=== PATIENT | female | born 1950 | race Caucasian/White ===

== ENCOUNTER → 2016-09-03 | Outpatient (CLI) | payer OTHER ==
[~2016-09-03] MED LIST: ASCA500 PO; FRC PO; MYCO500T4 PO; OXYC-57 PO; PRD/25 PO; TACR5CAP PO; ULT/50 PO
[2016-09-03 12:33] LABS: ESTIMATED AVERAGE GLUCOSE 117 mg/dl; HA1C FLAG Normal (Normal)
[2016-09-03 13:02] LABS: CHOLESTEROL/HDL RATIO 2.9
== END | disposition home or self-care (01) ==
LOC: C.LAB 10:31
PROVIDERS: ATTEND Surgery
DX: Z48.298 Encounter for aftercare following other organ transplant (principal); Z94.0 Kidney transplant status; Z79.899 Other long term (current) drug therapy

== ENCOUNTER → 2017-06-03 | Outpatient (CLI) | payer OTHER ==
--- NOTE | 2017-06-03 14:25 | MAMMOGRAPHY REPORT ---
BILATERAL DIGITAL SCREENING MAMMOGRAM TOMOSYNTHESIS WITH CAD: 06/03/2017 CLINICAL HISTORY: Routine screening examination. TECHNIQUE: Breast tomosynthesis in addition to standard 2D mammography was performed. Current study was also evaluated with a Computer Aided Detection (CAD) system. COMPARISON: Comparison is made to exams dated: 06/02/2016 mammogram, 04/30/2015 mammogram - [facility], and 03/09/2007. BREAST COMPOSITION: The tissue of both breasts is heterogeneously dense, which may obscure small mas ses. FINDINGS: The parenchymal pattern is similar to prior mammograms. There are benign abimbola like calcifi cations in the anterior right breast. No developing mass, architectural distortion or cluster of alo picious microcalcifications is seen in either breast. IMPRESSION: ACR BI-RADS CATEGORY 2: BENIGN There is no mammographic evidence of malignancy. A 1 year screening mammogram is recommended. The pa tient will receive written notification of the results. Approximately 10% of breast cancers are not detected with mammography. A negative mammographic report should not delay biopsy if a clinically suggestive mass is present. Angelica Bassett M.D. ay/:06/03/2017 12:43:54 Press Operator Apprentice: Brenda LANDIS(Dina)(Yovana), [facility] letter sent: Normal 1/2 BI-RADS Code: ACR BI-RADS Category 2: Benign
== END | disposition home or self-care (01) ==
LOC: C.MAMM 09:22
PROVIDERS: ATTEND Internal Medicine
DX: Z12.31 Encounter for screening mammogram for malignant neoplasm of breast (principal)

== ENCOUNTER 2019-08-23 07:54 | Inpatient (IN) ==
--- NOTE | 2019-07-14 08:44 | PAT Medication Instructions ---
Medication Instructions Date of Service July 14, 2019 Home Medications Medication Instructions Recorded atorvastatin 80 mg tablet 80 mg PO QPM #90 tab 03/16/19 mycophenolate mofetil 250 mg 250 mg PO BID #180 cap 03/16/19 capsule tacrolimus 1 mg capsule 4 mg PO Q12H #360 cap 03/16/19 tramadol 50 mg tablet 50 mg PO Q4H PRN #120 tab 03/16/19 alprazolam 0.25 mg tablet 0.25 mg PO BID PRN #180 tab 03/22/19 estradiol 0.05 mg/24 hr semiweekly 1 patch TOPICAL WEEKLY #8 ea 04/21/19 transdermal patch mycophenolate mofetil 500 mg tablet 500 mg PO BID #60 tab 05/10/19 vfvgydpqfr-njweanxelxjas-aejwtvxx 1 cap PO Q4H PRN #120 cap 06/27/19 50 mg-325 mg-40 mg capsule cyclobenzaprine 10 mg tablet 10 mg PO BID PRN #180 tab 07/11/19 atorvastatin 80 mg tablet 80 mg PO QPM mycophenolate mofetil 250 mg capsule 250 mg PO BID tacrolimus 1 mg capsule 4 mg PO Q12H tramadol 50 mg tablet 50 mg PO Q4H PRN alprazolam 0.25 mg tablet 0.25 mg PO BID PRN estradiol 0.05 mg/24 hr semiweekly transdermal patch 1 patch TOPICAL WEEKLY mycophenolate mofetil 500 mg tablet 500 mg PO BID pswypvslww-usdpvbjtapeyr-sfqgofso 50 mg-325 mg-40 mg capsule 1 cap PO Q4H PRN aspirin 81 mg PO QAM celecoxib [Celebrex] 200 mg PO QPM nystatin-triamcinolone 1 appln TOP BID PRN pantoprazole 40 mg PO DAILY PRN prednisone 2.5 mg PO QPM cyclobenzaprine 10 mg tablet 10 mg PO BID PRN Continue as directed estradiol 0.05 mg/24 hr semiweekly transdermal patch 1 patch TOPICAL WEEKLY *DO NOT PLACE NEAR SURGICAL SITE ASK your surgeon for instructions celecoxib [Celebrex] 200 mg PO QPM STOP taking 24 hours before surgery nystatin-triamcinolone 1 appln TOP BID PRN DO NOT take the morning of surgery iglhetvrry-wcjlutisfqtpq-xpujjhen 50 mg-325 mg-40 mg capsule 1 cap PO Q4H PRN cyclobenzaprine 10 mg tablet 10 mg PO BID PRN Take morning of surgery With a small sip of water, OTHERWISE NOTHING TO EAT OR DRINK AFTER MIDNIGHT: mycophenolate mofetil 250 mg capsule 250 mg PO BID tacrolimus 1 mg capsule 4 mg PO Q12H tramadol 50 mg tablet 50 mg PO Q4H PRN (if needed, may be taken up to four hours before surgery) alprazolam 0.25 mg tablet 0.25 mg PO BID PRN (if needed) mycophenolate mofetil 500 mg tablet 500 mg PO BID aspirin 81 mg PO QAM pantoprazole 40 mg PO DAILY PRN (if needed) Take evening before surgery atorvastatin 80 mg tablet 80 mg PO QPM mycophenolate mofetil 250 mg capsule 250 mg PO BID tacrolimus 1 mg capsule 4 mg PO Q12H tramadol 50 mg tablet 50 mg PO Q4H PRN (if needed) alprazolam 0.25 mg tablet 0.25 mg PO BID PRN (if needed) mycophenolate mofetil 500 mg tablet 500 mg PO BID olmjarweue-hkiajkiymvjyr-olyyratb 50 mg-325 mg-40 mg capsule 1 cap PO Q4H PRN (if needed) celecoxib [Celebrex] 200 mg PO QPM pantoprazole 40 mg PO DAILY PRN (if needed) prednisone 2.5 mg PO QPM cyclobenzaprine 10 mg tablet 10 mg PO BID PRN (if needed) Other Notes If you have any questions please call us at [phone] or [phone] or [phone] or [phone]
--- NOTE | 2019-07-14 11:37 | Anesthesiology Consultation ---
Date of Service July 14, 2019 Assessment & Plan (1) Encounter for pre-operative examination: Note sent to PCP re: HTN. PCP aware of HTN, "should be OK, we'll follow up." Chart Review Chart Review: Acceptable Risk for Surgery and Patient seen in Pre Admission Testing Teaching & Discussion Instructed NPO after midnight before surgery, except medications with 15 cc of water. Medication instructions provided according to the PAT guidelines. History Surgery Operation Date: 08/23/19 08:50 Proposed Procedures p Right Total Knee Arthroplasty - Jaime Desai MD Height/Weight Height: 5 ft 1 in Weight: 73.7 kg Allergies Allergy/AdvReac Type Severity Reaction Status Date / Time nitrofurantoin AdvReac Unknown SEVERE Verified 07/05/19 09:07 HEADACHE Medications Home Medications Medication Instructions Recorded Confirmed Last Taken atorvastatin 80 mg tablet 80 mg PO QPM #90 tab 03/16/19 07/05/19 Unknown mycophenolate mofetil 250 mg 250 mg PO BID #180 cap 03/16/19 07/05/19 Unknown capsule tacrolimus 1 mg capsule 4 mg PO Q12H #360 cap 03/16/19 07/05/19 Unknown tramadol 50 mg tablet 50 mg PO Q4H PRN #120 tab 03/16/19 07/05/19 Unknown alprazolam 0.25 mg tablet 0.25 mg PO BID PRN #180 tab 03/22/19 07/05/19 Unknown estradiol 0.05 mg/24 hr semiweekly 1 patch TOPICAL WEEKLY #8 ea 04/21/19 07/05/19 Unknown transdermal patch mycophenolate mofetil 500 mg tablet 500 mg PO BID #60 tab 05/10/19 07/05/19 Unknown guxhbsovwb-mfcpazwzmelsh-sndebpkb 1 cap PO Q4H PRN #120 cap 06/27/19 07/05/19 Unknown 50 mg-325 mg-40 mg capsule aspirin 81 mg PO QAM 07/05/19 07/05/19 Unknown celecoxib [Celebrex] 200 mg PO QPM 07/05/19 07/05/19 Unknown nystatin-triamcinolone 1 appln TOP BID PRN 07/05/19 07/05/19 Unknown pantoprazole 40 mg PO DAILY PRN 07/05/19 07/05/19 Unknown prednisone 2.5 mg PO QPM 07/05/19 07/05/19 Unknown cyclobenzaprine 10 mg tablet 10 mg PO BID PRN #180 tab 07/11/19 Unknown Past Medical History Medical History (Updated 07/19/19 @ 10:33 by Lawrence Prado) Cardiac murmur I/ on exam at [facility]. Echo 2018 showed severe mitral annular calcification. 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) Osteoarthritis Osteoporosis Exercise / Class Metabolic Activity III < 4 Walking/Shop/Light housework (Mild +SOB with 1 FOS due to knee pain, currently limited by knee pain; denies CP) Past Surgical History Surgical History Arteriovenous fistula removed History of bladder surgery prolapsed bladder repair History of colonoscopy History of D&C History of surgery PLACEMENT OF PERITONEAL DIALYSIS CATHETER History of surgery H/O AVF CREATION LUE FOR HEMODIALYSIS History of total abdominal hysterectomy and bilateral salpingo-oophorectomy Nausea and vomiting after administration of anesthetic agent Transplant of kidney (Chronic 12/11/11) 23 YEARS AGO - FOLLOWS W/ DR. NIX Past Anesthesia History No Hx of Anesthesia Complications (other than SEVERE PONV) and No Family Hx of Anesthesia Complications History of PONV History of PONV and Hx of Motion Sickness Social History Smoking Status: Never smoker Do You Dip or Chew Tobacco: No Hx Alcohol Use: Yes Alcohol type: wine alcohol intake frequency: holidays/special occasions only Hx Substance Use: No substance use type: does not use Review of Systems Pt denies any recent chest pain, shortness of breath, palpitations, cough, fever or URI. Physical Exam Vital Signs BP: 164/107 (repeat 10 mins later 158/96 -- pt states usually at home is WNL, this is high for her. To see PCP prior to surgery) P: 88bpm SPO2: 95% RA T: 98.0 F R: 18 ENMT Mouth: + dental bridge (upper R); no chipped teeth and no loose teeth Thyromental Distance: > or= 3.5 Finger Breadths (4) Mallampati Class: II Neck normal visual inspection; neck extension not limited Respiratory normal respiratory effort Auscultation: lungs clear to auscultation bilaterally Cardiovascular Rate/Rhythm: regular rate and regular rhythm Heart Sounds: + murmur (I/ RSB) Vessels: no carotid bruit Extremities: no edema Testing Laboratory Results 07/14/19 11:56 07/14/19 11:56 PT 9.9 Seconds (9.0-12.0) 07/14/19 11:56 INR 1.0 (0.9-1.1) 07/14/19 11:56 APTT 24.6 Seconds (21.0-31.0) 07/14/19 11:56 Blood Type O Positive 07/14/19 11:56 Antibody Screen NEGATIVE 07/14/19 11:56 Electrocardiogram Date: 07/14/19 Findings: + NSR @ (78) Chest X-Ray Date: 07/14/19 Findings: + NAD Echocardiogram Date: 05/25/18 EF: > 70% LV size, wall thickness and systolic function are normal. Severe concentric LVH. Grade I diastolic dysfunction. Moderate to severe mitral annular calcification.
--- NOTE | 2019-07-14 12:14 | XRay Report ---
XR chest Pre-admission PA/Lat CLINICAL HISTORY: pat preoperative COMPARISON STUDY: 12/11/2011 FINDINGS: The bones soft tissues and hemidiaphragms are normal. The cardiomediastinal silhouette is n ormal. The lungs are clear. The pulmonary vasculature is normal. IMPRESSION: Negative chest. The above report was generated using voice recognition software. It may contain grammatical, syntax or spelling errors. Electronically signed by: Job Bruner M.D. 07/14/2019 12:13 PM
[2019-07-14 13:53] LABS: Basophils # (auto) 0.01 K/uL (0-0.2); Basophils % (auto) 0.2 %; Eosinophils # (auto) 0.15 K/uL (0-0.5); Eosinophils % (auto) 2.9 %; Hematocrit (blood only) 39.9 % (37-47); Hemoglobin 13.1 g/dL (12.0-16.0); Lymphocytes % (auto) 24.8 %; Mean Corpuscular Hemoglobin 29.4 pg (25-34); Mean Corpuscular Hgb Conc 32.8 g/dL (32-36); Mean Corpuscular Volume 89.7 fL (80-100); Mean Platelet Volume 9.5 fL (7.4-10.4); Monocytes # (auto) 0.44 K/uL (0.11-0.59); Monocytes % (auto) 8.4 %; Neutrophils # (auto) 3.35 K/uL (1.4-6.5); Neutrophils % (auto) 63.7 %; Platelet Count 298 K/uL (130-400); RDW Coefficient of Variation 13.5 % (11.5-14.5); RDW Standard Deviation 44.3 fL (36.4-46.3); Red Blood Count 4.45 M/uL (4.2-5.4); White Blood Count 5.25 K/uL (4.8-10.8)
[2019-07-14 14:01] LABS: BUN Creatinine Ratio 18.3 (10-20); Creatinine Clr Calc Pharmacy 78.8 ml/min; Est GFR (African American) 106.5; Est GFR (Non-African American) 91.9; Potassium 3.9 mmol/L (3.5-5.1)
[2019-07-14 14:06] LABS: Partial Thromboplastin Ratio 0.9; Partial Thromboplastin Time 24.6 Seconds (21.0-31.0); Prothrombin Time 9.9 Seconds (9.0-12.0)
--- NOTE | 2019-08-20 12:23 | History and Physical Report ---
DATE OF ADMISSION: 08/23/2019 CHIEF COMPLAINT: Bilateral knee pain and discomfort, right side greater than left. HISTORY OF PRESENT ILLNESS: The patient is a 69-year-old female who is referred by my partner Dr. Connelly for surgical treatment of her knees. She has got a fairly long history of bilateral knee pain and discomfort that has gradually gotten worse over the past several years and more specifically the past year. She has been through extensive conservative treatment. She has had injections in the knee, which most recently helped for about a month. This has become less successful over time. She describes global pain. The more she walks, the more it hurts. She has difficulty going up and down steps. The right knee bothers her more than left. She would like to have her right knee fixed. Of note, the patient does have a history of kidney transplant 23 years ago with a functioning kidney with a creatinine is 0.61. PAST MEDICAL HISTORY: 1. Hypertension. 2. Elevated cholesterol. 3. Sleep apnea. 4. Gastroesophageal reflux disease. 5. Mild obesity, BMI of 31. 6. Kidney transplant in 1995, followed by Dr. Vicente. PREVIOUS SURGERIES: Include: 1. Hysterectomy in 2012. 2. Kidney transplant in 1995. 3. Vaginal prolapse surgery. ALLERGIES: MACRODANTIN. CURRENT MEDICINES: Include: 1. Prednisone 2.5 mg once a day. 2. CellCept 250 mg twice a day. 3. CellCept 500 mg twice daily. 4. Prograf 4 mg twice a day. 5. Celebrex 200 mg a day. 6. Xanax 0.25 mg twice a day p.r.n. 7. Tylenol. 8. Caffeine. 9. Tramadol. SOCIAL HISTORY: A 69-year-old female. She does not smoke. No significant alcohol intake. FAMILY HISTORY: Noncontributory. REVIEW OF HISTORY: Negative for diabetes, neurologic problem, vascular problems or bleeding disorders. Denies any chest pain or shortness of breath. No history of DVT or PE. She does have a kidney transplant, but it is functioning well. PHYSICAL EXAMINATION: GENERAL: Reveals a healthy pleasant elderly female. Looks to be in pretty good health. HEENT: Benign. NECK: Supple, no lymphadenopathy. LUNGS: Clear to auscultation. HEART: Has regular rate and rhythm. ABDOMEN: Soft, nontender, nondistended. EXTREMITIES: Grossly neurovascularly intact except as follows: Examination of both knees reveals patient walks with a slightly antalgic gait. Examination of the right knee reveals a varus alignment. She is tender over the medial joint line. She has got some bony hypertrophy medially. Range of motion about 10 degrees short of full extension to about 110-115 degrees of flexion. There is no clinical instability. No pain with hip motion. Examination of left knee reveals varus alignment. She is tender over the medial joint line. Range of motion 5-120. No instability. X-RAYS: X-rays of both knees reveal advanced bilateral knee DJD, the right side just a little bit worse than the left. She has got complete loss of the medial joint space in both knees with osteophytes of the medial femoral condyle and medial tibial plateau and subchondral sclerosis. ASSESSMENT: A 69-year-old white female with advanced bilateral knee degenerative joint disease. The right side is a worse than the left and he has failed conservative treatment. She elected to proceed with right knee replacement. PLAN: We will take her to the operating room and do right total knee replacement. The risks and benefits of this procedure were explained to the patient including but not limited to DVT, PE, , infection, neurological injury, vascular injury, bleeding problem, pain, limited range of motion, stiffness, failure to relieve her symptoms, incomplete relief of symptoms, need for further surgery in the future, fracture, leg length inequality, nerve palsy, persistent pain, etc. The patient understands and desires to proceed. Informed consent was obtained. Her prednisone dose is pretty low, so I do not think we need stress doses. We will likely put some vancomycin in the cement. We will limit her NSAID use due to her single kidney. We will use aspirin for DVT prophylaxis. She is hoping to be discharged to home likely with home health.
[~2019-08-23 07:54] MED LIST changes: +ACETAMINOPHEN 500 MG TAB PO SCH; -ASCA500 PO; +BUPIVACAINE 0.5 % 5 MG/1 ML PF 10ML VIAL ONE; +BUPIVACAINE LIPOSOME/PF 266 MG, BUPIVACAINE/EPINEPHRINE 50 ML, SODIUM CHLORIDE 0.9% 30 ... INFIL SCH; +CEFAZOLIN 2000MG 2,000 MG/15 ML SYR IV SCH; +FAMOTIDINE 20 MG TAB PO SCH; -FRC PO; +GABAPENTIN 300 MG CAP PO SCH; +LR 15ML/HR IV SCH; +LR 500ML BOLUS, THEN 15ML/HR IV SCH; +METOCLOPRAMIDE HCL 10 MG TABLET PO SCH; -MYCO500T4 PO; -OXYC-57 PO; -PRD/25 PO; +ROPIVACAINE 0.5% 5 MG/ML 30 ML VIAL ONE; +SCOPOLAMINE 1.5 MG TDSY TD SCH; +SODIUM CHLORIDE 0.9% 1,000 ML IV SCH; -TACR5CAP PO; +TRANEXAMIC ACID 1,000 MG **IV Intra-op IV SCH; -ULT/50 PO
--- NOTE | 2019-08-23 08:40 | History & Physical Bridge Note ---
Date of Service August 23, 2019 History & Physical Bridge Note I have examined the patient, reviewed the History & Physical and in the interval since the performance of the History & Physical I have noted the following changes of clinical significance: no changes noted
[2019-08-23] MEDS ORDERED: TRANEXAMIC ACID / 0.7% NACL 1000MG/100ML BAG IV ONE (08:57)
[2019-08-23] MEDS ORDERED: MIDAZOLAM HCL 1 MG/ML 2ML VIAL ONE (09:29)
[2019-08-23] MEDS ORDERED: ONDANSETRON INJ 2 MG/ML 2 ML VIAL IV PRN (10:24)
[2019-08-23] MEDS ORDERED: ePHEDrine sulfate 50 MG/ML AMP IV PRN (10:24)
[2019-08-23] MEDS ORDERED: HYDROmorphone INJ 1 MG/ML SYRINGE IV PRN (10:24)
[2019-08-23] MEDS ORDERED: ATROPINE SULFATE 0.1 MG/ML 10ML SYR IV PRN (10:24)
[2019-08-23] MEDS ORDERED: BUPIVACAINE/EPINEPHRINE 0.25% 1:200,000 30 ML VIAL ONE (10:41)
[2019-08-23] MEDS ORDERED: SODIUM CHLORIDE 0.9% PF 50 ML VIAL ONE (10:41)
[2019-08-23] MEDS ORDERED: BACITRACIN INJ 50,000 UNIT VIAL ONE (10:42)
[2019-08-23] MEDS ORDERED: BUPIVACAINE LIPOSOME 1.3% 266 MG/20 ML VIAL ONE (10:42)
[2019-08-23] MEDS ORDERED: PROPOFOL IV EMULSION 10 MG/ML 20 ML VIAL IV ONE (11:05)
[2019-08-23] MEDS ORDERED: HYDROCORTISONE SOD SUCCINATE 100 MG/2 ML VIAL ONE (11:06)
[2019-08-23] MEDS ORDERED: VANCOMYCIN HCL 1000MG/20ML VIAL ONE (11:07)
--- NOTE | 2019-08-23 12:35 | Post Operative Brief Note ---
PG Immediate Post Op with CF Date of Surgery August 23, 2019 Pre & Post Diagnosis Operation Date: 08/23/19 10:40 Pre-Op Diagnosis: Right Knee Degenerative Joint Disease Post-Op Diagnosis: Right Knee Degenerative Joint Disease I identified the patient and participated in the time-out.: Yes Procedure Operation Date: 08/23/19 10:40 Actual Procedures p Right Total Knee Arthroplasty(Right) - Jaime Desai MD Surgeon Jaime Desai MD Lockstitch Lining Setter Fili, PAC Estimated Blood Loss 50 Findings Consistent with Post-Op Diagnosis Fluids 300 cc Specimens Specimen Description: Permanent Specimen: A.) Right Knee Bone and Tissue Drains Kohler Catheter (16 irish 10ml balloon, placed by Lluvia Penn PA-C, without difficulty; kohler demonstrates clear yellow urine. Output measured and recorded by anesthesia.) Anesthesia Type Spinal MAC Complications none Disposition Accompanied Patient To Recovery: No Disposition: Recovery Room
--- NOTE | 2019-08-23 12:47 | Operative Report ---
Post Operative Report Pre & Post Diagnosis Operation Date: 08/23/19 10:40 Pre-Op Diagnosis: Right Knee Degenerative Joint Disease Post-Op Diagnosis: Right Knee Degenerative Joint Disease I identified the patient and participated in the time-out.: Yes Procedure Operation Date: 08/23/19 10:40 Actual Procedures p Right Total Knee Arthroplasty(Right) - Jaime Desai MD Surgeon Jaime Desai MD Rock Wool Applicator Fili, PAC Estimated Blood Loss 50 Findings Consistent with Post-Op Diagnosis Operative findings revealed advanced right knee grade 4 fusd-my-adhb disease in all 3 compartments with a fixed varus deformity to her knee. She had osteophytes in all 3 compartments. She had a moderate-sized joint effusion. She had a flexion contracture of 15 degrees. She had diffuse osteopenia. Fluids 300 cc Specimens Right knee sent for pathology. Drains None. Anesthesia Type Spinal MAC Complications none Disposition Accompanied Patient To Recovery: No Disposition: Recovery Room Indications Patient is a 68-year-old female who is had a several year history of bilateral knee pain discomfort right side greater than left. She been through extensive conservative treatment which became less successful over time. X-rays show advanced bilateral knee DJD. She elected proceed with right total knee arthroplasty. Description of Procedure Operative implants consist of: 1. Biomet Vanguard size 65 right posterior stabilized femoral component. 2. Biomet size 67 tibial tray. 3. 10 mm posterior stabilized polyethylene insert. 4. 28 x 8 all poly-patella. Patient was taken to the operating room identified and placed on the operating room table in supine position protectors were properly padded. IV antibiotics were tried by anesthesia team. A spinal anesthetic and abductor canal block had provided in the holding area. Garcia catheter was placed in sterile fashion. Right thigh turn was then placed in the right lower extremities and prepped and draped in usual sterile fashion. The right leg was elevated and exsanguinated with use of an Esmarch and the tourniquet was placed at 300 mmHg. An anterior approach of the right knee was then performed the longitudinal incision centered over the patella. Sharp dissection was carried out through subcutaneous tissue down to level the extensor mechanism. A medial parapatellar arthrotomy incision was made. Some subperiosteal dissection was carried out medially. The fat pad was resected from each patella tendon. The patella femoral ligament was released and the patella was subluxated laterally and the knee was flexed. The osteophytes were taken off the distal femur. The ACL and PCL were then released from distal femur and the tibia was subluxated anteriorly. The external tibial alignment jig was then placed in the interface the tibia and adjusted 14 mm medially. The proximal tibial cut was made to remove about a millimeter bone from most efficient aspect medial tibial plateau. Some osteophytes were taken off medial and posterior medially. The tibia was sized to a size 67. Attention drawn the femur. The distal femur was entered with a sharp drop with intramedullary canal was suction. A right 5 degree valgus cutting guide was placed. Distal femoral c utting block was pinned in place. The distal femoral cut was made to take an additional 3 mm of bone off the distal femur. The femur was then sized to a size 65. We did downsize a slightly. The AP cutting block was pinned parallel to the epicondylar axis which was 3 degrees of external rotation with anterior cut, anterior chamfer, posterior cut, posterior chamfer cuts were made. Box cutting guide was placed in a just slight lateral box cut was made. The knee was flexed. The remnants of the medial and lateral menisci were excised. The osteophytes were taken off the posterior aspect of the femur. Trial femoral component was placed. The tibial tray was then pinned in maximum external rotation and the drill and stem punch were used to create the defect in the proximal tibia for the tibial tray. The knee was then trialed and the 10 mm insert fit most appropriately. Attention drawn to to the patella. The patella was cleaned of all soft tissues. Patella thickness measured 24 mm in thickness was cut down to 14. Would did leave well fixed due to her osteopenia. The patella was sized to a size 28. The locals were drilled for the 28 patella. The lateral osteophyte was removed. Patella button was placed in and the knee was taken through range of motion and the patella tracked nicely with no thumbs test. Attention then drawn to placing the permanent components. No follow-up trial components removed. Bone plug was placed in the distal femur limit blood loss. A double batch of Palacos G cement was mixed. Biomet Vanguard size 65 right posterior by femoral component, a Biomet size 67 tibial tray, the 10 mm posterior box polyethylene insert, and a 28 x 8 all poly-patella were then cemented into place. Knee was brought out into full extension until cement hardened. Final cement check was then performed. The pericapsular tissues were injected with total 100 cc of combination of 20 cc of Exparel, 30 cc normal saline, 50 cc of quarter percent Marcaine with epinephrine. Patient did receive a gram of tranexamic acid before the surgery started. The tourniquet was let down for a total tourniquet time of 54 minutes. Hemostasis reduced electrocautery. Once again irrigated and attention then drawn toward closing. The extensor mechanism then closed with combination 1 PDS suture #1 Vicryl suture in euyutx-kj-aabhj fashion to the extensor mechanism was checked and found to be intact with subcutaneous tissue then closed with 2 Dexon suture in a buried interrupted fashion skin was closed skin ady. Leg was then cleaned and dried and sterile dressing composed of Xeroform, 4 x 4's, sterile cast padding, Jerry bandage were applied. Patient transferred to the recovery room in stable condition. Patient tolerated procedure well no complications. I attest to the content of the Intraoperative Record and any orders documented therein. Any exceptions are noted below.
--- NOTE | 2019-08-23 13:04 | XRay Report ---
XR knee RT 1 or 2V routine CLINICAL HISTORY: Surgical Post Op COMPARISON: None. DISCUSSION: Anatomic alignment post total right knee arthroplasty. Good contact between prosthetic an d underlying bone. There is no evidence for soft tissue swelling. IMPRESSION: Anatomic alignment post total right knee arthroplasty. ACT 112: Negative or not required by law. The above report was generated using voice recognition software. It may contain grammatical, syntax or spelling errors. Electronically signed by: Job Bruner M.D. 08/23/2019 1:03 PM
--- NOTE | 2019-08-23 14:03 | Anesthesiology Progress Note ---
Date of Service August 23, 2019 Anesthesia Post Procedure Vital Signs Vital Signs: Temp Pulse Pulse Resp BP Pulse Ox 08/23/19 13:40 84 23 151/85 H 92 08/23/19 13:30 36.6 C 89 20 153/89 H 95 08/23/19 13:20 87 19 151/91 H 95 08/23/19 13:10 84 20 159/80 H 95 08/23/19 13:00 81 13 166/86 H 96 08/23/19 12:50 84 15 173/84 H 96 08/23/19 12:40 36.6 C 88 16 166/86 H 99 08/23/19 08:28 36.8 C 81 18 165/104 H 97 Pain Intensity Bilateral Knee: Pain Intensity: 2 Head: Pain Intensity: 6 Transfer of Care Handoff Completed per policy Notes Mental Status: alert / awake / arousable Patient Amnestic to Procedure: Yes Nausea / Vomiting: adequately controlled Pain: adequately controlled Airway Patency, RR, SpO2: stable & adequate BP & HR: stable & adequate Hydration State: stable & adequate Neuraxial Anesthesia: was administered and sensory block is resolving Anesthetic Complications: no major complications apparent
[2019-08-23] MEDS ORDERED: BUTALBITAL/ACETAMIN/CAFFEINE TAB PO PRN ×2 (14:13→15:33)
[2019-08-23] MEDS ORDERED: NALOXONE HCL 0.4 MG/1 ML VIAL/CARP IV PRN (14:13)
[2019-08-23] MEDS ORDERED: ALPRAZolam 0.25 MG TABLET PO PRN (14:13)
[2019-08-23] MEDS ORDERED: MAGNESIUM HYDROXIDE SUSP 30 ML UDC PO PRN (14:13)
[2019-08-23] MEDS ORDERED: ALUMINUM/MAGNESIUM SUSP 30 ML UDC PO PRN (14:13)
[2019-08-23] MEDS ORDERED: ESTRADIOL SCH (14:13)
[2019-08-23] MEDS ORDERED: bisacodyL 10 MG SUPP PR PRN (14:13)
[2019-08-23] MEDS ORDERED: PANTOprazole 40 MG TAB PO PRN (14:13)
[2019-08-23] MEDS ORDERED: NYSTATIN/TRIAMCIN CR 15 GM TUBE EXT PRN (14:13)
[2019-08-23] MEDS ORDERED: METOCLOPRAMIDE HCL INJ 5 MG/ML 2 ML VIAL IV PRN (14:13)
[2019-08-23] MEDS ORDERED: CYCLOBENZAPRINE HCL 10 MG TAB PO PRN (14:13)
[2019-08-23] MEDS: SODIUM CHLORIDE 0.9% 1000ML 1,000 ML IV SCH ×2 (14:41→23:30)
[2019-08-23] MEDS: ACETAMINOPHEN 500 MG TAB PO SCH ×2 (15:34→21:54)
[2019-08-23] MEDS: CHECK SCOPOLAMINE PATCH PLACEMENT SCH ×2 (15:35→23:27)
[2019-08-23] MEDS: ASCORBIC ACID 500 MG TAB PO SCH (17:44)
[2019-08-23] MEDS: FERROUS GLUCONATE 324 MG TAB PO SCH (17:45)
[2019-08-23] MEDS: CEFAZOLIN 1000MG 1,000 MG/7.5 ML SYR IV SCH (18:07)
[2019-08-23] MEDS: KETOROLAC TROMETHAMINE 15 MG/ML VIAL IV SCH ×2 (18:07→23:26)
[2019-08-23] MEDS ORDERED: TRANEXAMIC ACID / 0.7% NACL 1,000 MG/100 ML BAG IV SCH (18:38)
[2019-08-23] MEDS: ASPIRIN 81 MG ECTAB PO SCH (20:44)
[2019-08-23] MEDS: TACROLIMUS 1 MG CAP PO SCH (20:44)
[2019-08-23] MEDS: MYCOPHENOLATE MOFETIL 250 MG CAP PO SCH ×2 (20:44→20:46)
[2019-08-23] MEDS: predniSONE 2.5 MG TAB PO SCH (20:45)
[2019-08-23] MEDS: ATORVASTATIN 40 MG TAB PO SCH (20:45)
[2019-08-23] MEDS: DOCUSATE SODIUM 100 MG CAP PO SCH (20:45)
[2019-08-23] MEDS: SENNA 8.6 MG TAB PO SCH (20:46)
[2019-08-23] MEDS: OXYCODONE HCL IR 5 MG TAB (IMMEDIATE RELEASE) PO PRN (20:49)
[2019-08-23] MEDS: TAPENTADOL HCL ER 50 MG TABCR PO SCH (20:49)
[2019-08-23] MEDS: HYDROmorphone INJ 0.5 MG/0.5 ML SYR IV PRN (23:26)
[2019-08-24] MEDS: CEFAZOLIN 1000MG 1,000 MG/7.5 ML SYR IV SCH (02:08)
[2019-08-24] MEDS: OXYCODONE HCL IR 5 MG TAB (IMMEDIATE RELEASE) PO PRN ×4 (04:20→23:31)
[2019-08-24] MEDS: ACETAMINOPHEN 500 MG TAB PO SCH ×3 (05:37→21:01)
[2019-08-24] MEDS: KETOROLAC TROMETHAMINE 15 MG/ML VIAL IV SCH ×4 (05:37→23:31)
[2019-08-24 05:47] LABS: Hematocrit (blood only) 33.3 % (37-47); Hemoglobin 10.7 g/dL (12.0-16.0); Mean Corpuscular Hemoglobin 29.2 pg (25-34); Mean Corpuscular Hgb Conc 32.1 g/dL (32-36); Mean Corpuscular Volume 90.7 fL (80-100); Mean Platelet Volume 8.6 fL (7.4-10.4); Platelet Count 241 K/uL (130-400); RDW Coefficient of Variation 13.3 % (11.5-14.5); RDW Standard Deviation 44.4 fL (36.4-46.3); Red Blood Count 3.67 M/uL (4.2-5.4); White Blood Count 9.24 K/uL (4.8-10.8)
[2019-08-24 06:20] LABS: Calcium 8.5 mg/dl (8.5-10.1)
[2019-08-24 06:33] LABS: BUN Creatinine Ratio 21.4 (10-20); Creatinine Clr Calc Pharmacy 74.8 ml/min; Est GFR (African American) 104.8; Est GFR (Non-African American) 90.4
[2019-08-24] MEDS: ONDANSETRON INJ 2 MG/ML 2 ML VIAL IV PRN ×2 (07:44→20:05)
--- NOTE | 2019-08-24 07:59 | Anesthesiology Progress Note ---
Date of Service August 24, 2019 Anesthesia Post Procedure Vital Signs Vital Signs: Temp Pulse Pulse Pulse Pulse Resp BP 08/24/19 07:46 36.6 C 82 16 154/86 H 08/24/19 03:40 36.5 C 89 18 142/82 H 08/23/19 23:32 36.6 C 80 16 154/77 H 08/23/19 19:06 36.9 C 79 16 08/23/19 17:03 36.8 C 71 16 156/85 H 08/23/19 16:13 36.7 C 75 16 153/90 H 08/23/19 14:27 36.6 C 75 16 155/87 H 08/23/19 14:17 36 C L 86 18 08/23/19 13:40 84 23 08/23/19 13:30 36.6 C 89 20 08/23/19 13:20 87 19 08/23/19 13:10 84 20 08/23/19 13:00 81 13 08/23/19 12:50 84 15 08/23/19 12:40 36.6 C 88 16 08/23/19 08:28 36.8 C 81 18 BP Pulse Ox 08/24/19 07:46 99 08/24/19 03:40 98 08/23/19 23:32 96 08/23/19 19:06 156/83 H 96 08/23/19 17:03 96 08/23/19 16:13 93 08/23/19 14:27 96 08/23/19 14:17 162/91 H 95 08/23/19 13:40 151/85 H 92 08/23/19 13:30 153/89 H 95 08/23/19 13:20 151/91 H 95 08/23/19 13:10 159/80 H 95 08/23/19 13:00 166/86 H 96 08/23/19 12:50 173/84 H 96 08/23/19 12:40 166/86 H 99 08/23/19 08:28 165/104 H 97 Pain Intensity Bilateral Knee: Pain Intensity: 2 Head: Pain Intensity: 2 Notes Mental Status: alert / awake / arousable and participated in evaluation Patient Amnestic to Procedure: Yes Nausea / Vomiting: adequately controlled Pain: adequately controlled Airway Patency, RR, SpO2: stable & adequate BP & HR: stable & adequate Hydration State: stable & adequate Neuraxial Anesthesia: was administered and sensory block resolved Anesthetic Complications: no major complications apparent and Pt Satisfied with anesthetic care
[2019-08-24] MEDS: TAPENTADOL HCL ER 50 MG TABCR PO SCH ×2 (09:01→21:06)
[2019-08-24] MEDS: HYDROmorphone INJ 0.5 MG/0.5 ML SYR IV PRN ×3 (09:01→20:05)
[2019-08-24] MEDS: ASCORBIC ACID 500 MG TAB PO SCH ×2 (09:02→17:54)
[2019-08-24] MEDS: DOCUSATE SODIUM 100 MG CAP PO SCH ×2 (09:02→21:01)
[2019-08-24] MEDS: MULTIVITAMIN TAB PO SCH (09:02)
[2019-08-24] MEDS: MYCOPHENOLATE MOFETIL 250 MG CAP PO SCH ×4 (09:02→21:01)
[2019-08-24] MEDS: FERROUS GLUCONATE 324 MG TAB PO SCH ×2 (09:03→17:54)
[2019-08-24] MEDS: TACROLIMUS 1 MG CAP PO SCH ×2 (09:03→21:01)
[2019-08-24] MEDS: ASPIRIN 81 MG ECTAB PO SCH ×2 (09:03→21:01)
--- NOTE | 2019-08-24 19:35 | Progress Note ---
DATE: 08/24/2019 SUBJECTIVE: A 69-year-old white female with multiple comorbidities postop day 1 from a right knee replacement. She is doing quite well. Some pain, but manageable. No chest pain or shortness of breath. Not feeling dizzy or lightheaded. OBJECTIVE: VITAL SIGNS: Temperature 37.4. Vital signs stable. GENERAL: Shows a pleasant, middle-aged female. She is sitting up in her bedside chair, talking to family. She looks comfortable. LUNGS: Clear to auscultation. HEART: Has a regular rate and rhythm. ABDOMEN: Soft, nontender, nondistended. EXTREMITIES: Grossly neurovascularly intact except as follows: Examination of the right leg reveals the leg to be well aligned. Dressing is clean, dry and intact. She can dorsiflex and plantarflex her foot appropriately. She is neurologically intact. LABORATORY DATA: Her hemoglobin is 10.7. Hematocrit 33.3. Electrolytes are stable. Specifically, her creatinine is stable at 0.64. ASSESSMENT: A 69-year-old white female with multiple comorbidities including status post a kidney transplant, now postoperative day 1 from right knee replacement. She is doing pretty well. Pain is controlled. She is neurologically intact. PLAN: 1. DVT prophylaxis including thigh-high TEDs, SCDs, and aspirin twice a day. 2. PT/OT. She will weightbear as tolerated. Right total knee protocol. 3. Pain control, doing pretty well with current pain regimen. We are using some low dose Toradol. She was on Celebrex preoperatively. We will follow her creatinine carefully and stop this if it bumps at all. 4. Disposition: Plan to discharge her home with some home health once adequately recovered and medically stable.
[2019-08-24] MEDS: ATORVASTATIN 40 MG TAB PO SCH (21:01)
[2019-08-24] MEDS: predniSONE 2.5 MG TAB PO SCH (21:01)
[2019-08-24] MEDS: SENNA 8.6 MG TAB PO SCH (21:01)
[2019-08-25] MEDS: HYDROmorphone INJ 0.5 MG/0.5 ML SYR IV PRN (04:18)
[2019-08-25 05:42] LABS: BUN Creatinine Ratio 11.1 (10-20); Calcium 9.2 mg/dl (8.5-10.1); Creatinine Clr Calc Pharmacy 88.7 ml/min; Est GFR (African American) 110.8; Est GFR (Non-African American) 95.6; Potassium 3.7 mmol/L (3.5-5.1)
[2019-08-25] MEDS: KETOROLAC TROMETHAMINE 15 MG/ML VIAL IV SCH (05:45)
[2019-08-25] MEDS: ACETAMINOPHEN 500 MG TAB PO SCH (05:45)
[2019-08-25] MEDS: OXYCODONE HCL IR 5 MG TAB (IMMEDIATE RELEASE) PO PRN (07:36)
[2019-08-25] MEDS: TAPENTADOL HCL ER 50 MG TABCR PO SCH (07:36)
[2019-08-25] MEDS: MYCOPHENOLATE MOFETIL 250 MG CAP PO SCH ×2 (07:37→07:38)
[2019-08-25] MEDS: ONDANSETRON INJ 2 MG/ML 2 ML VIAL IV PRN (07:37)
[2019-08-25] MEDS: TACROLIMUS 1 MG CAP PO SCH (07:38)
[2019-08-25] MEDS: DOCUSATE SODIUM 100 MG CAP PO SCH (07:38)
[2019-08-25] MEDS: FERROUS GLUCONATE 324 MG TAB PO SCH (07:39)
[2019-08-25] MEDS: ASPIRIN 81 MG ECTAB PO SCH (07:39)
[2019-08-25] MEDS: ASCORBIC ACID 500 MG TAB PO SCH (07:39)
[2019-08-25] MEDS: MULTIVITAMIN TAB PO SCH (07:39)
--- NOTE | 2019-08-25 07:47 | Progress Note ---
DATE: 08/25/2019 SUBJECTIVE: A 69-year-old female postop day 2 from right knee replacement. She is doing pretty well. Pain has been reasonably well controlled. Therapy is going well. No chest pain or shortness of breath. Not feeling dizzy or lightheaded. OBJECTIVE: VITAL SIGNS: Temperature 36.9. Vital signs stable. GENERAL: Shows a pleasant, middle-aged female. She is lying in bed, looks pretty comfortable. EXTREMITIES: Examination of the right leg reveals the leg to be well aligned. Dressings in place. A little bit of bloody drainage inferiorly. Calf is soft and supple. She is neurologically intact. LABORATORY DATA: Creatinine continues to be stable at 0.54. ASSESSMENT: A 69-year-old female status post kidney transplant with diabetes postoperative day 2 from right knee replacement. She is doing pretty well. Pain is controlled. PLAN: 1. DVT prophylaxis including thigh-high TEDs, SCDs, and aspirin twice a day. 2. PT/OT. Weight bear as tolerated. Right total knee protocol. 3. Pain control, doing pretty well with current pain regimen. 4. Disposition: Plan to discharge to home with some home health later today.
--- NOTE | 2019-08-29 15:39 | Discharge Summary ---
ADMITTING PHYSICIAN AND SURGEON: Dr. Jaime Desai. ADMITTING DIAGNOSIS: Right knee degenerative joint disease. SURGERY PERFORMED: Right total knee arthroplasty. SECONDARY DIAGNOSES: Hypertension, elevated cholesterol, sleep apnea, gastroesophageal reflux disease, mild obesity, history of kidney transplant. CONSULTS: None obtained. HISTORY AND PHYSICAL EXAMINATION: Well documented in the patient's chart. HOSPITAL COURSE: The patient was admitted on 08/23/2019 underwent total knee arthroplasty, tolerated the procedure well. There were no complications. She was transferred to the PACU postoperatively and later to the orthopedic floor for further care. She was given Ancef for antibiotic prophylaxis, ANGELO stockings, SCDs and aspirin for DVT prophylaxis. Hemoglobin, hematocrit and vital signs were monitored during her hospital stay and remained stable. She did not require any blood transfusions. There were no complications. On postoperative day 2, she was tolerating a regular diet, pain was controlled with oral pain medicine. She was participating in physical therapy. Postop day 2, she was discharged home, set up with home health services. She was given printed discharge instructions as well as new prescriptions for extra strength Tylenol, aspirin and oxycodone. Continue her home medications with the exception of her home dose of aspirin and continue physical therapy, weightbearing as tolerated, ANGELO stockings. Follow up approximately 2 weeks postop or sooner if there are any problems or concerns.
== END 2019-08-25 11:41 | disposition home health service (06) | DRG 470 ==
LOC: ASU 07:54 → 3E 12:40

== ENCOUNTER 2021-10-11 09:23 | Observation (INO) ==
--- NOTE | 2021-10-09 22:48 | History and Physical Report ---
CHIEF COMPLAINT: Persistent left knee pain and discomfort. HISTORY OF PRESENT ILLNESS: The patient is a 71-year-old female who presents now for surgical treatm ent of her left knee. She has got a long history of knee problems and had her right knee replaced ab out 2-1/2 years ago. She has done pretty well from this. She continues to be limited by left knee p ain and discomfort. She describes global pain. The more she is up on it, the more it hurts. She li mps all day long, but more as the day goes on. If she sits for a while, it gets really stiff and has trouble getting up and moving. She has difficulty going up and down steps. She would like to have her left knee replaced. Of note, the patient does have a history of a kidney transplant back in 1995, which is doing well. S he is on Celebrex as per Dr. Vicente. PAST MEDICAL HISTORY: Significant for, 1. Kidney transplant in 1995. 2. Hypertension. 3. Elevated cholesterol. 4. Sleep apnea. 5. Anxiety. PAST SURGICAL HISTORY: Include, 1. Right total knee replacement done on 08/23/2019. 2. Kidney transplant in 1995. ALLERGIES: MACRODANTIN. CURRENT MEDICATIONS: Include, 1. Prograf. 2. Fioricet. 3. Mycophenolate. 4. Prilosec. 5. Prednisone. 6. Xanax. 7. Vitamin C. SOCIAL HISTORY: A 71-year-old female. She is from [place]. She does not smoke. Minimal alcohol intake. FAMILY HISTORY: Noncontributory. REVIEW OF SYSTEMS: Negative for diabetes, neurologic problems, vascular problems, or bleeding disord ers. No history of DVT or PE. She cannot take certain NSAIDs due to her kidney transplant. PHYSICAL EXAMINATION: GENERAL: Shows a pleasant middle-aged female. She looks to be in pretty good health. HEENT: Benign. NECK: Supple. No lymphadenopathy. LUNGS: Clear to auscultation. HEART: Has a regular rate and rhythm. ABDOMEN: Soft, nontender, nondistended. EXTREMITIES: Grossly neurovascularly intact except as follows: Examination of the left knee reveale d the patient ambulates independently. She has got moderate soft tissue envelope. She has got varus alignment to her knee. She has got bony hypertrophy medially and tender over the medial joint line. Range of motion is about 5 degrees short of full extension to 120 degrees of flexion. There is no instability. No pain with hip motion. Examination of the right knee reveals a well-healed incision. She has got anatomic alignment. The r savage of motion is 0 to 120. X-RAYS: X-rays of the left knee from previously reviewed, shows advanced left knee DJD. She has com plete loss of her medial joint space. Some mild diffuse osteopenia. There are osteophytes medially and laterally. The right knee replacement looks to be in good position. ASSESSMENT: A 71-year-old female with history of kidney transplant in the past along with high blood pressure, elevated cholesterol, anxiety, and sleep apnea with advanced left knee degenerative joint disease. She is now 2-1/2 years out from right knee replacement, doing well and would like to have h er left knee replaced. PLAN: We are going to take her to the operating room and do the left knee replacement. She was sche duled for this previously, but canceled due to the COVID epidemic. We are going to plan on keeping h er in the hospital overnight. She will be discharged to home with home health. The risks and benefi ts of the procedure were once again explained to her in depth and she understands and desires to proc eed. Job ID: [id number]
--- NOTE | 2021-10-10 12:35 | Anesthesiology Consultation ---
Date of Service October 10, 2021 Assessment & Plan (1) Encounter for pre-operative examination: Chart Review Chart Review: Acceptable Risk for Surgery (pending preop Covid testing results ) and Patient NOT seen in Pre Admission Testing Pt initially seen in [facility] in 04/2021- has been rescheduled multiple times due to Covid surgery Dr. Chi had reviewed case prior to patient's rescheduled surgery due to Covid surge - patient it NOT considered an acceptable Outpatient Joint candidate Per nursing assessment 10/10/2021, patient denies any recent travel. No known Covid infection in the past 90 days. Patient is fully vaccinated for Covid. No known Covid positive exposures or Covid related symptoms. Preop Covid testing 10/10/21= results pending Last seen by PCP 07/25/21= pt presents to establish care as transfer from Dr. Vicente.Aware of upcoming left TKA.Hypertensionpoorly controlledstart amlodipine. Systolic [id number] ECHO reviewed- mumur noted on exam- could consider repeat ECHO in future to monitor. Hyperlipidemiacontinue statin. ESRD status post renal transplant 1996continue current medications and follow-up with drip pumper/transplant team. GERDwell-controlledcontinue current meds. Osteoporosiscontinue vitamin D and good dietary calcium intake. We will continue to monitor and treat as needed. Arthritis paincontinue with tramadol as needed until TKA. Anxietystart Celexa. Chronic tension headachetreated with Flexeril/tramadol/Fioricet. Last seen by nephro 07/03/21= Patient seen for follow-up evaluation. Feels well overall presents clinic without complaints. Immunosuppressive therapytacrolimus acceptabletolerating current therapy well. Transplanted kidneytolerating current therapy well. HypertensionBP acceptable. Anxietycontinue alprazolam.Left knee DJDleft TKA scheduledno concerns or adjustments from kidney standpoint. Follow-up in 6 months. Last seen by [facility] transplant clinic 02/19/2021 =patient now 25 years post transplant. Allograft function is excellent. IS seems appropriate. Creatinine stable around 0.6 mg/DL. Immunosuppressioncontinue current medications. Continue to monitor BPs at home and follow-up with local providers. Continue routine transplant labs every 3 months. Follow-up in 1 year. Right TKA 08/23/2019= done under [facility] at L3-4. With 1 attempt. No anesthesia issues noted per anesthesia record. History Surgery Operation Date: 10/11/21 12:00 Proposed Procedures p Left Total Knee Replacement - Jaime Desai MD Height/Weight Height: 5 ft 1.5 in Weight: 72.575 kg Allergies Allergy/AdvReac Type Severity Reaction Status Date / Time nitrofurantoin AdvReac Mild SEVERE Verified 10/10/21 13:45 HEADACHE Medications Home Medications Medication Instructions Recorded Confirmed Last Taken nystatin-triamcinolone 100,000 1 appln TOP BID PRN 07/05/19 10/10/21 Unknown unit/g-0.1 % topical cream docusate sodium 100 mg tablet 100 mg PO BID 07/11/20 10/10/21 Unknown (Stool Softener) mycophenolate mofetil 250 mg See Rx Instructions .ROUTE 11/27/20 10/10/21 Unknown capsule .COMPLEX #180 cap mycophenolate mofetil 500 mg tablet See Rx Instructions .ROUTE 11/27/20 10/10/21 Unknown .COMPLEX #180 tab tramadol 50 mg tablet 50 mg PO DAILY PRN #60 tab 06/18/21 10/10/21 Unknown atorvastatin 40 mg tablet 40 mg PO QPM #90 tab 07/03/21 10/10/21 Unknown tacrolimus 1 mg capsule, 5 mg PO BID #900 cap 07/08/21 10/10/21 Unknown immediate-release zrqxdjeixs-xfbrqgcznhfkc-npwhfxwd 1 cap PO Q6H PRN #120 cap 07/25/21 10/10/21 Unknown 50 mg-325 mg-40 mg capsule cyclobenzaprine 10 mg tablet 10 mg PO BID PRN #60 tab 07/25/21 10/10/21 Unknown amlodipine 5 mg tablet 5 mg PO QAM 08/05/21 10/10/21 Unknown citalopram 10 mg tablet 10 mg PO QAM 08/05/21 10/10/21 Unknown prednisone 2.5 mg tablet 2.5 mg PO QPM #90 tab 08/13/21 10/10/21 Unknown alprazolam 0.25 mg tablet 0.25 mg PO BID PRN #180 tab 09/26/21 10/10/21 Unknown celecoxib 200 mg capsule 200 mg PO QPM #90 cap 10/04/21 10/10/21 Unknown acetaminophen 500 mg capsule 1,000 mg PO TID 30 Days #180 cap 10/09/21 10/10/21 Unknown aspirin 81 mg tablet,delayed 81 mg PO BID 45 Days #90 tab 10/09/21 10/10/21 Unknown release (Aspirin Low Dose) ondansetron HCl 4 mg tablet 4 mg PO Q6 PRN #30 tab 10/09/21 10/10/21 Unknown oxycodone 5 mg tablet 5 - 10 mg PO Q6 PRN #40 tab 10/09/21 10/10/21 Unknown sennosides 8.6 mg-docusate sodium 1 tab-cap PO DAILY #14 tab 10/09/21 10/10/21 U nknown 50 mg tablet (Senokot-S) ascorbic acid (vitamin C) 500 mg 500 mg PO QAM 10/10/21 10/10/21 Unknown tablet (Vitamin C) cholecalciferol (vitamin D3) 50 50 mcg PO QAM 10/10/21 10/10/21 Unknown mcg (2,000 unit) tablet (Vitamin D3) pantoprazole 20 mg tablet,delayed 40 mg PO QAM 10/10/21 10/10/21 Unknown release Past Medical History Medical History Cardiac murmur I-II/ on exam at PAT 05/09/21. Echo 2017 (ordered by nephro) showed moderate to severe mitral annular calcification- nephro monitoring murmur per patient- stable PCP also aware and monitoring per 07/2021 PCP note Chronic tension headache Dyslipidemia GERD (gastroesophageal reflux disease) Well controlled and stable - improved with Protonix History of hemodialysis History of peritoneal dialysis History of renal failure Hx of ESRD from HTN vs possible PCKD- s/p DDRTx February 1996 S/p transplant 02/19/96- continues to follow with transplant program at [facility] HTN (hypertension) Immunosuppressive therapy (12/11/11) Osteoarthritis Osteoporosis Past Family History Family History Mother Myocardial infarction Other No family history of adverse response to anesthesia Denies family history of Ovarian cancer Prostate cancer Breast cancer Colorectal cancer Past Surgical History Surgical History Arteriovenous fistula removed History of bladder surgery prolapsed bladder repair History of cataract surgery BL History of colonoscopy History of D&C History of surgery PLACEMENT OF PERITONEAL DIALYSIS CATHETER History of surgery H/O AVF CREATION LUE FOR HEMODIALYSIS History of total abdominal hysterectomy and bilateral salpingo-oophorectomy History of total right knee replacement (TKR) Nausea and vomiting after administration of anesthetic agent Transplant of kidney 1995- follow with nephro and [facility] transplant clinic Social History Smoking Status: Never smoker Hx Alcohol Use: Yes Alcohol type: wine alcohol intake frequency: a few times a month Hx Substance Use: No substance use type: does not use Lab Results Anesthesia Preop Results Results Anesthesia Widget: WBC 6.63 K/uL (4.8-10.8) 10/03/21 Hgb 13.1 g/dL (12.0-16.0) 10/03/21 Hct 40.8 % (37-47) 10/03/21 Plt 342 K/uL (130-400) 10/03/21 Na 137 mmol/L (136-145) 10/03/21 K 3.7 mmol/L (3.5-5.1) 10/03/21 Cl 106 mmol/L (98-107) 10/03/21 CO2 22 mmol/L (21-32) 10/03/21 BUN 16 mg/dl (6-23) 10/03/21 Creat 0.61 mg/dl (0.6-1.2) 10/03/21 Glucose Level 87 mg/dl (70-99(Fasting)) 10/03/21 PT 10.0 Seconds (9.0-12.0) 10/03/21 INR 1.0 (0.9-1.1) 10/03/21 Blood Type O Positive 10/03/21 Antibody Screen NEGATIVE 10/03/21 Testing Electrocardiogram Date: 05/09/21 Findings: + NSR @ (81bpm) RBBB When compared to EKG from Jul 14, 2019- RBBB is now present per cardio Chest X-Ray Date: 05/09/21 Findings: + NAD and + cardiomegaly (mild) Dense mitral annular calcifications. Echocardiogram Date: 05/25/18 EF: > 70% LV size, wall thickness and systolic function are normal. Severe concentric LVH. Grade I diastolic dysfunction. Moderate to severe mitral annular calcification. (Pt follows with PCP/nephro routinely- murmur stable- discussed with Dr. Godoy 05/09/21 - pt had no issues with SAB Aug 2019- can proceed as scheduled)
[~2021-10-11 09:23] MED LIST changes: +BUPIVACAINE 0.25% 30 ML VIAL ONE; -CEFAZOLIN 2000MG 2,000 MG/15 ML SYR IV SCH; -LR 15ML/HR IV SCH; -LR 500ML BOLUS, THEN 15ML/HR IV SCH; +LR 60ML/HR IV SCH; -ROPIVACAINE 0.5% 5 MG/ML 30 ML VIAL ONE; -SCOPOLAMINE 1.5 MG TDSY TD SCH; -SODIUM CHLORIDE 0.9% 1,000 ML IV SCH; +ceFAZolin 2000MG 2,000 MG/15 ML SYR IV SCH
[2021-10-11] MEDS: LR 500ML BOLUS, THEN 15ML/HR IV SCH ×2 (10:36→11:36)
--- NOTE | 2021-10-11 10:56 | History & Physical Bridge Note ---
Date of Service October 11, 2021 History & Physical Bridge Note I have examined the patient, reviewed the History & Physical and in the interval since the performance of the History & Physical I have noted the following changes of clinical significance: no changes noted
[2021-10-11] MEDS ORDERED: MIDAZOLAM HCL 1 MG/ML 2ML VIAL ONE ×3 (12:12→13:56)
[2021-10-11] MEDS ORDERED: fentaNYL citrate 100 MCG/2 ML VIAL ONE (12:13)
[2021-10-11] MEDS ORDERED: ONDANSETRON INJ 2 MG/ML 2 ML VIAL IV PRN ×2 (12:45→17:30)
[2021-10-11] MEDS ORDERED: ATROPINE SULFATE 0.1 MG/ML 10ML SYR IV PRN (12:45)
[2021-10-11] MEDS ORDERED: fentaNYL citrate 100 MCG/2 ML VIAL IV PRN (12:45)
[2021-10-11] MEDS ORDERED: ePHEDrine sulfate 50 MG/ML AMP IV PRN (12:45)
[2021-10-11] MEDS ORDERED: SODIUM CHLORIDE 0.9% PF 50 ML VIAL ONE (12:59)
[2021-10-11] MEDS ORDERED: BUPIVACAINE/EPINEPHRINE 0.25% 1:200,000 30 ML VIAL ONE (12:59)
[2021-10-11] MEDS ORDERED: BUPIVACAINE LIPOSOME 1.3% 266 MG/20 ML VIAL ONE (12:59)
[2021-10-11] MEDS ORDERED: PROPOFOL IV EMULSION 10 MG/ML 20 ML VIAL IV ONE (13:40)
[2021-10-11] MEDS ORDERED: DEXAMETHASONE SOD INJ 4 MG/ML VIAL ONE (14:28)
[2021-10-11] MEDS ORDERED: ONDANSETRON INJ 2 MG/ML 2 ML VIAL ONE (14:28)
--- NOTE | 2021-10-11 15:26 | Operative Report ---
PG Post Operative Report Pre & Post Diagnosis Operation Date: 10/11/21 12:00 Pre-Op Diagnosis: Left Knee Osteoarthritis Post-Op Diagnosis: Left Knee Osteoarthritis I identified the patient and participated in the time-out.: Yes Procedure Operation Date: 10/11/21 12:00 Actual Procedures p Left Total Knee Replacement(Left) - Jaime Desai MD Surgeon Jaime Desai MD Machinery Engineer Thaddeus Penn PA-C Estimated Blood Loss 50 Findings Consistent with Post-Op Diagnosis Operative findings revealed advanced left knee DJD. She had grade 4 [id number] disease in all 3 compartments most severe in the medial side. She had diffuse osteopenia. Moderate-sized joint effusion. Osteophytes in all 3 compartments. Fluids 900 cc Specimens Left knee sent for pathology Drains None Anesthesia Type Spinal MAC Complications none Disposition Accompanied Patient To Recovery: No Indications Patient is a 71-year-old female with history of kidney transplant in the past who has had a long history of bilateral knee pain discomfort. Has been through extensive conservative treatment became less successful over time. She had her right knee replaced in the past and is done well with this. Continued be limited by left knee pain patient elected proceed with total knee arthroplasty. Description of Procedure Operative implants consist of: 1. Biomet Vanguard size 65 left posterior stabilized femoral component. 2. Biomet size 67 tibial tray. 3. 10 mm posterior stabilized polyethylene insert. 4. 31 x 8 all polypatella. The patient was taken to the operating, identified, placed on the operating table supine position protectors were properly padded. IV antibiotics tried by anesthesia team. Spinal anesthetic and abductor canal block had provided in the holding area. Garcia catheter was placed in sterile fashion. Left thigh turn was then placed in the left lower extremity was then prepped and draped in usual sterile fashion. The left leg was elevated exsanguinated with use of an Esmarch in terms playset 300 mmHg. An anterior approach left knee was then performed to longitudinal incision centered over the patella. Sharp dissection got through subcutaneous tissue down the extensor mechanism. A medial parapatellar arthrotomy incision was made. Some subperiosteal dissection was carried out medially. The fat pad was resected from each patella tendon. The lateral patellofemoral ligament was released and the patella was subluxated laterally and the knee was flexed. The osteophytes were taken off distal femur. The ACL and PCL were then released from distal femur the tibia subluxated anteriorly. The external tibial alignment jig was then placed in the interface the tibia and adjusted 14 mm medially. Proximal tibial cut was made remove about a millimeter bone from most deficient aspect medial tibial plateau. Some osteophytes were taken off medial and posterior medially. Attention drawn the femur. The distal femur stem with a sharp drop with intramedullary canal was suction the left 5 degree valgus cutting guide was placed. The distal femoral cutting block was pinned in place. Distal femoral cut was made to take an additional 3 mm bone off distal femur. The femur was then sized to a size 65. We did downsize this. The AP cutting block was pinned parallel to the epicondylar axis which was 4 degrees of external rotation. Anterior cut, anterior chamfer, posterior cut, posterior chamfer cuts were made. The box cutting guide was placed in the just slight lateral and the box cut was made. The knee was flexed. The remnants of the medial and lateral menisci were excised. The osteophytes taken off the posterior aspect the femur. A trial femoral component was placed. Tibial tray was pinned in maximum external rotation and the drill and stem punch used to create defect in proximal tibia for the tibial tray. The knee was then trialed and the 10 mm insert fit most appropriately. Attention drawn the patella. The patella was cleaned of all soft tissues. Patella thickness measured 25 mm in thickness. Was cut down to 15. Her bone and the patella was extremely soft. The lug holes were drilled for the patella component. The lateral osteophyte is moved. Patella button was placed. Knee was taken through range of motion patella tracked nicely with no thumbs test. Attention drawn to place the permanent components. All trial components were removed. Bone plug was placed in the distal femur limit blood loss. Double batch Palacos G cement was mixed. Biomet Vanguard size 65 left posterior stabilized femoral component, size 67 tibial tray, 10 mm posterior stabilized polyethylene insert, and a 31 x 8 all polypatella then cemented in place. Knee was brought out into full extension until cement hardened. Final cement check was then performed. The pericapsular tissues were injected with total of 100 cc of combination of 20 of Exparel, 30 cc normal saline, 50 cc of quarter percent Marcaine with epinephrine. Patient did receive 1 g tranexamic acid. The tourniquet was then let down for final turn time 62 minutes. Hemostasis assured use electrocautery. The extensor mechanism closed with combination 1 PDS suture #1 Vicryl suture in [id number] fashion. The extensor mechanism then checked and found to be intact the subcutaneous tissue was then closed with 2 Dexon suture in buried interrupted fashion skin was closed skin ady. Leg was then cleaned and dried and sterile dressing was Xeroform, 4 x 4's, sterile cast padding, Jerry bandage were applied. Patient transferred to the recovery room in stable condition. Patient tolerated procedure well and there were no complications. Thaddeus Penn, my physician licensed nursing assistant, was present for the entire procedure. His assistance was essential and required for appropriate patient positioning, prepping and draping, surgical exposure, performing the technical details of the operation, placement the implants, closure of the wound, and placement of the sterile bandage. I attest to the content of the Intraoperative Record and any orders documented therein. Any exceptions are noted below.
--- NOTE | 2021-10-11 15:43 | XRay Report ---
XR knee LT 1 or 2V routine CLINICAL HISTORY: Surgical Post Op TECHNIQUE: 2 views of the left knee were obtained. Comparison: None available at the time of this dictation. FINDINGS: Patient is status post total knee arthroplasty with expected postsurgical changes including soft tiss ue swelling, subcutaneous emphysema, and surgical staple placement. No periarticular lucency or hardw are fracture is seen. The alignment is anatomic. Joint spaces are well-preserved. No joint effusion i s seen. No soft tissue abnormality is seen. IMPRESSION: No evidence of acute osseous injury. ACT 112: Negative or not required by law. Electronically signed by: Jassi Orantes M.D. 10/11/2021 3:41 PM
--- NOTE | 2021-10-11 15:54 | Anesthesiology Progress Note ---
Date of Service October 11, 2021 Anesthesia Post Procedure Vital Signs Vital Signs: Temp Pulse Pulse Resp BP Pulse Ox 10/11/21 15:45 89 20 153/87 H 99 10/11/21 15:35 89 20 144/76 H 100 10/11/21 15:25 86 18 151/80 H 100 10/11/21 15:16 36.0 C L 99 H 14 150/78 H 100 10/11/21 10:18 36.8 C 92 H 20 151/90 H 96 Pain Intensity Left Knee: Pain Intensity: 2 Transfer of Care Handoff Completed per policy Notes Mental Status: alert / awake / arousable Patient Amnestic to Procedure: Yes Nausea / Vomiting: adequately controlled Pain: adequately controlled Airway Patency, RR, SpO2: stable & adequate BP & HR: stable & adequate Hydration State: stable & adequate Neuraxial Anesthesia: was administered and sensory block is resolving Anesthetic Complications: no major complications apparent
[2021-10-11] MEDS ORDERED: bisacodyL 10 MG SUPP PR PRN (17:30)
[2021-10-11] MEDS ORDERED: MAGNESIUM HYDROXIDE SUSP 30 ML UDC PO PRN (17:30)
[2021-10-11] MEDS ORDERED: ALPRAZolam 0.25 MG TABLET PO PRN (17:30)
[2021-10-11] MEDS ORDERED: ALUMINUM/MAGNESIUM SUSP 30 ML UDC PO PRN (17:30)
[2021-10-11] MEDS ORDERED: CYCLOBENZAPRINE HCL 10 MG TAB PO PRN (17:30)
[2021-10-11] MEDS ORDERED: NYSTATIN/TRIAMCIN CR 15 GM TUBE EXT PRN (17:30)
[2021-10-11] MEDS ORDERED: METOCLOPRAMIDE HCL INJ 5 MG/ML 2 ML VIAL IV PRN (17:30)
[2021-10-11] MEDS ORDERED: HYDROmorphone INJ 0.5 MG/0.5 ML SYR IV PRN (17:30)
[2021-10-11] MEDS ORDERED: NALOXONE HCL 0.4 MG/1 ML VIAL/CARP IV PRN (17:30)
[2021-10-11] MEDS: SODIUM CHLORIDE 0.9% 1000ML 1,000 ML IV SCH (17:50)
[2021-10-11] MEDS ORDERED: BUTALBITAL/ACETAMIN/CAFFEINE TAB PO PRN (18:08)
[2021-10-11] MEDS ORDERED: ONDANSETRON 4 MG OD TAB PO PRN (18:10)
[2021-10-11] MEDS ORDERED: predniSONE 2.5 MG TAB PO SCH (21:00)
[2021-10-11] MEDS ORDERED: CeleBREX 200 MG CAP PO SCH (21:00)
[2021-10-11] MEDS ORDERED: SENNA 8.6 MG TAB PO SCH (21:00)
[2021-10-11] MEDS ORDERED: ATORVASTATIN 40 MG TAB PO SCH (21:00)
[2021-10-11] MEDS ORDERED: NON-FORMULARY MEDICATION (Docusate Sodium [Stool Softener] 100 mg Tablet) PO SCH (21:00)
[2021-10-11] MEDS ORDERED: TRANEXAMIC ACID / 0.7% NACL 1,000 MG/100 ML BAG IV SCH (21:15)
[2021-10-11] MEDS: ASPIRIN 81 MG ECTAB PO SCH (21:27)
[2021-10-11] MEDS: oxyCODONE HCL IR 5 MG TAB (IMMEDIATE RELEASE) PO PRN (21:27)
[2021-10-11] MEDS: DOCUSATE SODIUM 100 MG CAP PO SCH (21:28)
[2021-10-11] MEDS: MYCOPHENOLATE MOFETIL 250 MG CAP PO SCH (21:29)
[2021-10-11] MEDS: TACROLIMUS 1 MG CAP PO SCH (21:29)
[2021-10-11] MEDS: TAPENTADOL HCL ER 50 MG TABCR PO SCH (21:32)
[2021-10-11] MEDS: ceFAZolin 1000MG 1,000 MG/7.5 ML SYR IV SCH (22:00)
[2021-10-11] MEDS: ACETAMINOPHEN 500 MG TAB PO SCH (22:03)
[2021-10-12] MEDS: SODIUM CHLORIDE 0.9% 1000ML 1,000 ML IV SCH (03:56)
[2021-10-12] MEDS: ceFAZolin 1000MG 1,000 MG/7.5 ML SYR IV SCH (05:23)
[2021-10-12] MEDS: ACETAMINOPHEN 500 MG TAB PO SCH (05:24)
--- NOTE | 2021-10-12 07:24 | Orthopedic Progress Note ---
Date of Service October 12, 2021 Assessment & Plan (1) Left knee DJD: Overall she is doing very well. She is having much pain in the left knee. She will be seen by physical therapy today for ambulation and range of motion exercises. She can be discharged home later today. She already has all of her medications at home. She will follow-up with orthopedics in 2 weeks. Paulette Shelton was seen and examined at bedside this morning. Overall she is doing very well. She is not in too much pain in the left knee. She has not been ambulating on it yet. She will be seen by physical therapy today. She has no complaints.. Review of Systems All systems reviewed & are unremarkable except as noted in HPI & below. Physical Exam On physical examination of the left knee, the dressing is clean and dry. She has active dorsiflexion plantarflexion of her left ankle. Results & Data Results & Data Laboratory Results . Diagnostic Findings . PG Care Time/CCT Total # of Minutes Spent Total Time Spent with Patient: Total time spent is greater than 50% in coordination of care (as documented) at patient's floor/unit and/or counseling patient: Coding Level of Care Code 27414 Post Operative Follow-Up Diagnoses Left knee DJD M17.12
[2021-10-12 07:53] LABS: Hematocrit (blood only) 33.1 % (37-47); Hemoglobin 10.9 g/dL (12.0-16.0); Mean Corpuscular Hemoglobin 28.8 pg (25-34); Mean Corpuscular Hgb Conc 32.9 g/dL (32-36); Mean Corpuscular Volume 87.6 fL (80-100); Platelet Count 249 K/uL (130-400); RDW Coefficient of Variation 12.9 % (11.5-14.5); RDW Standard Deviation 41.2 fL (36.4-46.3); Red Blood Count 3.78 M/uL (4.2-5.4); White Blood Count 7.34 K/uL (4.8-10.8)
[2021-10-12] MEDS ORDERED: dexAMETHasone 10 MG in SYRINGE 0 ML IV SCH (08:00)
[2021-10-12 08:22] LABS: BUN Creatinine Ratio 18.2 (10-20); Calcium 7.8 mg/dl (8.5-10.1); Creatinine Clr Calc Pharmacy 84.8 ml/min; Est GFR (African American) 108.6 ml/min; Est GFR (Non-African American) 93.7 ml/min; Potassium 3.7 mmol/L (3.5-5.1)
[2021-10-12] MEDS ORDERED: amLODIPine BESYLATE 5 MG TAB PO SCH (09:00)
[2021-10-12] MEDS ORDERED: PANTOprazole 40 MG TAB PO SCH (09:00)
[2021-10-12] MEDS: oxyCODONE HCL IR 5 MG TAB (IMMEDIATE RELEASE) PO PRN (09:00)
[2021-10-12] MEDS ORDERED: DOCUSATE SODIUM/SENNA 50/8.6MG TAB PO SCH (09:00)
[2021-10-12] MEDS ORDERED: MULTIVITAMIN TAB PO SCH (09:00)
[2021-10-12] MEDS ORDERED: CITALOPRAM 20 MG TAB PO SCH (09:00)
[2021-10-12] MEDS ORDERED: ASCORBIC ACID 500 MG TAB PO SCH (09:00)
[2021-10-12] MEDS ORDERED: CHOLECALCIFEROL 1,000 UNITS 25 MCG TAB PO SCH (09:00)
[2021-10-12] MEDS: TAPENTADOL HCL ER 50 MG TABCR PO SCH (09:25)
[2021-10-12] MEDS: TACROLIMUS 1 MG CAP PO SCH (09:25)
[2021-10-12] MEDS: ASPIRIN 81 MG ECTAB PO SCH (09:26)
[2021-10-12] MEDS: DOCUSATE SODIUM 100 MG CAP PO SCH (09:26)
[2021-10-12] MEDS: MYCOPHENOLATE MOFETIL 250 MG CAP PO SCH (09:26)
--- NOTE | 2021-10-15 08:47 | Discharge Summary ---
Date of Service October 15, 2021 Discharge Data Procedures Performed Operation Date: 10/11/21 12:00 Actual Procedures p Left Total Knee Replacement(Left) - Jaime Desai MD Hospital Course (1) Status post total left knee replacement: Cat is a 71 year old patient admitted on 10/11/21 and underwent total knee arthroplasty. She tolerated the procedure well and there were no complications. Transferred to the PACU post op and later to the orthopedic floor for further care. She was given ancef for antibiotic prophylaxis. She was also given ANGELO stockings, SCDs, and aspirin for DVT prophylaxis. Hemoglobin, hematocrit, and vital signs were monitored during her hospital stay and remained stable. Did not require any blood transfusions. There were no complications during her hospital stay. By post op day #1 the patient was tolerating a regular diet, pain was reasonably controlled with oral pain medicine, and she was participating in physical therapy. On post op day #1 the patient was discharged home and set up with home health care. She was given printed discharge instructions including prescriptions for extra strength tylenol, aspirin, zofran, and oxycodone. Continue physical therapy, weight bearing as tolerated. Continue ANGELO stockings. Follow up approximately 2 weeks post op or sooner if there are problems or concerns. Coding Level of Care Code None Diagnoses Status post total left knee replacement Z96.652
== END 2021-10-12 12:32 | disposition home health service (06) ==
LOC: 3N 09:23 → ASU 09:23 → 3N 17:55